=== PATIENT | male | born 1980 | race African-American/Black ===

== ENCOUNTER 2019-07-25 04:14 | Emergency (ER) | payer SELFPAY ==
[~2019-07-25] VITALS: Ht 167.6 cm; Wt 61.0 kg
[2019-07-25 04:40] VITALS: BP 116/79
== END 2019-07-25 04:46 | disposition left against medical advice (07) ==
LOC: ER 04:14
DX: Z53.21 Procedure and treatment not carried out due to patient leaving prior to being seen by health care provider (principal)

== ENCOUNTER 2019-07-25 06:44 | Emergency (ER) | payer SELFPAY ==
[~2019-07-25] VITALS: Ht 170.2 cm; Wt 50.0 kg
[2019-07-25] MEDS ORDERED: SODIUM CHLORIDE 0.9% 1,000 ML IV ONE (08:17)
[2019-07-25] MEDS ORDERED: ONDANSETRON HCL 4MG/2ML INJ IV STA (08:17)
[2019-07-25 08:26] LABS: CLARITY URINE CLOUDY (CLEAR); COLOR URINE YELLOW (YELLOW); KETONES URINE NEGATIVE (NEGATIVE); LEUKOCYTE ESTERASE URINE 1+ (NEGATIVE); NITRITE URINE NEGATIVE (NEGATIVE); OCCULT BLOOD URINE NEGATIVE (NEGATIVE); PH URINE 5.5 (4.5-8.0); PROTEIN URINE 1+ (NEGATIVE); SPECIFIC GRAVITY URINE 1.012 (1.005-1.030); UROBILINOGEN URINE 0.2 E.U./dL (0.2-1.0)
[2019-07-25] MEDS ORDERED: ACETAMINOPHEN 325MG TABLET PO ONE (08:30)
[2019-07-25 09:15] LABS: BASOPHILS % 2.6 % (0.0-2.0); EOSINOPHILS % 3.2 % (0.0-5.0); HEMATOCRIT. 45.7 % (42.0-52.0); HEMOGLOBIN. 15.7 g/dL (14.0-18.0); LYMPHOCYTES % 49.8 % (20.0-50.0); MEAN CORPUSCULAR HEMOGLOBIN 34.6 pg (28.0-32.0); MEAN CORPUSCULAR VOLUME 100.6 fL (80.0-94.0); MEAN PLATELET VOLUME 8.4 fl (7.4-10.4); MONOCYTES % 9.5 % (2.0-8.0); NEUTROPHILS % 34.9 % (40.0-76.0); PLATELET 250 x1000/uL (130-400); RED BLOOD CELL COUNT 4.55 mill/uL (4.7-6.1); RED CELL DISTRIBUTION WIDTH 15.8 % (11.6-14.6)
[2019-07-25 09:21] LABS: CHLORIDE 100 mEq/L (98-107)
[2019-07-25 09:22] LABS: PROTHROMBIN TIME 9.9 sec (9.6-11.0)
[2019-07-25 19:30] VITALS: BP 110/58
== END 2019-07-25 20:19 | disposition home or self-care (01) ==
LOC: ER 06:44
DX: R10.84 Generalized abdominal pain (principal); R11.2 Nausea with vomiting, unspecified; R19.7 Diarrhea, unspecified
CPT/HCPCS: 36415; 80053; 81003; 83690; 85025; 85610; 87086; 96361; 96374; 99283; J2405; J7030